=== PATIENT | female | born 1985 | race Caucasian/White ===

== ENCOUNTER 2024-02-25 12:16 | Day surgery (SDC) | payer OTHER ==
[2024-02-25] MEDS: FERRIC CARBOXYMALTOSE 750 MG in SODIUM CHLORIDE 250 ML IVPB SCH (12:50)
[2024-02-25] MEDS: HYDROCORTISONE SOD SUCCINATE 100 MG/2 ML VIAL IVPB SCH (13:20)
[2024-02-25] MEDS: DIPHENHYDRAMINE 50 MG in SODIUM CHLORIDE 50 ML IVPB SCH (13:20)
[2024-02-25 14:02] VITALS: BP 119/97; PULSE 73; RESP 18; TEMP 98.1
[2024-02-25] MEDS ORDERED: SODIUM CHLORIDE 250 ML IV SCH (15:00)
== END 2024-02-25 13:55 | disposition home or self-care (01) ==
LOC: FINFUSION 12:16 → FM/S 12:18 → FINFUSION 13:55
PROVIDERS: ATTEND Family Medicine
PROC: 3E033GC Introduction of Other Therapeutic Substance into Peripheral Vein, Percutaneous Approach (ICD-10-PCS; principal; 2024-02-25)
DX: D50.9 Iron deficiency anemia, unspecified (principal)
CPT/HCPCS: 81025; 96365; J1439

== ENCOUNTER 2024-03-03 12:08 | Day surgery (SDC) | payer OTHER ==
[2024-03-03] MEDS: FERRIC CARBOXYMALTOSE 750 MG in SODIUM CHLORIDE 250 ML IVPB SCH (12:37)
[2024-03-03 14:48] VITALS: BP 134/78; PULSE 68; RESP 16; TEMP 97.7
== END 2024-03-03 14:48 | disposition home or self-care (01) ==
LOC: FINFUSION 12:08 → FM/S 12:09 → FINFUSION 14:48
PROVIDERS: ATTEND Family Medicine
PROC: 3E033GC Introduction of Other Therapeutic Substance into Peripheral Vein, Percutaneous Approach (ICD-10-PCS; principal; 2024-03-03)
DX: D50.9 Iron deficiency anemia, unspecified (principal)
CPT/HCPCS: 96365; J1439